=== PATIENT | male | born 1955 | race Caucasian/White ===

== ENCOUNTER 2021-08-07 20:16 | Observation (INO) | payer MEDICARE ==
[~2021-08-07] VITALS: Ht 188 cm; Wt 77.1 kg
[~2021-08-07 20:16] MED LIST: PROTONIX 40 MG40 M1 PO
[2021-08-07 21:04] LABS: HEMOGLOBIN 15.3 gm/dl (14.0-17.5); RED BLOOD COUNT 4.84 M/UL (4.20-5.50); WHITE BLOOD COUNT 10.4 K/UL (4.5-11.0)
[2021-08-07 21:25] LABS: BUN/CREATININE RATIO 15 (0-10)
[2021-08-08] MEDS ORDERED: ENDOCET 5-3251 EACH PO (02:22)
[2021-08-08] MEDS ORDERED: PREDNISONE20 MG PO (02:37)
[2021-08-08] MEDS ORDERED: CARBAMAZEPINE100 M1 PO (02:37)
[2021-08-08] MEDS ORDERED: PERCOCET 10-321 EACH PO (09:35)
[2021-08-08] MEDS ORDERED: DICLOFENAC SODI50 MG PO (09:38)
[2021-08-08] MEDS ORDERED: GABAPENTIN800 MG PO (09:39)
[2021-08-08] MEDS ORDERED: NARCAN4 MG (09:42)
[2021-08-08] MEDS ORDERED: PROTONIX40 MG PO (09:42)
[2021-08-08] MEDS ORDERED: MULTIVITAMIN1 EACH PO (09:45)
[2021-08-08] MEDS ORDERED: PROAIR HFA8.5 GM INH (09:46)
[2021-08-08 10:08] LABS: HEMOGLOBIN 15.1 gm/dl (14.0-17.5); RED BLOOD COUNT 4.82 M/UL (4.20-5.50)
[2021-08-08 10:14] LABS: WHITE BLOOD COUNT 5.8 K/UL (4.5-11.0)
[2021-08-08] MEDS ORDERED: PREDNISONE 20 M20 MG PO (12:36)
[2021-08-08] MEDS ORDERED: PHENERGAN 12.12.5 M1 PO (14:26)
[2021-08-09 07:42] LABS: HEMOGLOBIN 14.1 gm/dl (14.0-17.5); RED BLOOD COUNT 4.57 M/UL (4.20-5.50)
[2021-08-09 08:13] LABS: BUN/CREATININE RATIO 19 (0-10)
== END 2021-08-09 12:00 | disposition home or self-care (01) ==
LOC: ER1 20:16 → CDU 08-08 03:06 → M/S 08-08 03:06
PROVIDERS: Emergency Medicine; ADMIT Internal Medicine
DX: R51.9 Headache, unspecified (principal); F12.10 Cannabis abuse, uncomplicated; F17.210 Nicotine dependence, cigarettes, uncomplicated; M19.90 Unspecified osteoarthritis, unspecified site; Z20.822 Contact with and (suspected) exposure to COVID-19; Z86.79 Personal history of other diseases of the circulatory system; Z79.52 Long term (current) use of systemic steroids; Z79.899 Other long term (current) drug therapy
CPT/HCPCS: 36415; 70450; 80048; 84439; 84443; 85025; 85652; 86140; 96374; 96375; 96376; 99285; G0378; J1170; J1650; J1885; J2405; U0002